=== PATIENT | male | born 1965 | race Caucasian/White ===

== ENCOUNTER 2021-07-29 17:57 | Emergency (ER) | payer BC ==
[~2021-07-29] VITALS: Ht 175.3 cm; Wt 75.0 kg
[2021-07-29 19:10] LABS: BASOPHILS % (AUTO) 0.2 % (0-1); EOSINOPHILS % (AUTO) 0.1 % (0-6); HEMATOCRIT 48.8 % (42.0-52.0); HEMOGLOBIN 16.4 g/dl (14.0-17.9); LYMPHOCYTES # (AUTO) 1.5 X10'3 (1.1-4.8); LYMPHOCYTES % (AUTO) 10.3 % (21-51); MEAN CORPUSCULAR HEMOGLOBIN 32.1 PG (27.0-31.0); MEAN CORPUSCULAR HGB CONC 33.6 g/dL (33.0-36.5); MEAN CORPUSCULAR VOLUME 95.6 FL (78-98); MEAN PLATELET VOLUME 8.3 FL (7.4-10.4); MONOCYTES # (AUTO) 0.9 X10'3 (0-0.9); NEUTROPHILS % (AUTO) 83.4 % (42-75); PLATELET COUNT 230 X10'3 (140-440); RED CELL DISTRIBUTION WIDTH 13.9 % (11.5-14.5); WHITE BLOOD COUNT 14.4 X10'3 (4.5-11.0)
[2021-07-29 19:29] LABS: ALANINE AMINOTRANSFERASE 38 U/L (12-78); ALBUMIN 4.6 G/DL (3.4-5.0); ALBUMIN/GLOBULIN RATIO 1.6 (1.1-1.5); ALKALINE PHOSPHATASE 63 IU/L (46-116); ANION GAP 13 (8-16); ASPARTATE AMINO TRANSFERASE 44 U/L (10-37); BILIRUBIN,TOTAL 0.6 MG/DL (0.1-1.0); BLOOD UREA NITROGEN 9 MG/DL (7-18); BUN/CREATININE RATIO 10.6 (5.4-32.0); CHLORIDE 106 MMOL/L (99-107); CREATININE 0.85 MG/DL (0.60-1.10); ETHANOL 0.179 GM/DL (0.0-0.010); GLUCOSE 96 MG/DL (70-104); POTASSIUM 3.9 MMOL/L (3.5-5.1); SODIUM 142 MMOL/L (135-145); TOTAL CARBON DIOXIDE 22.6 MMOL/L (24-32); TOTAL PROTEIN 7.4 G/DL (6.4-8.2); eGFR > 90 ML/MIN
[2021-07-29 19:48] LABS: URINE AMPHETAMINE SCREEN NEGATIVE (Neg); URINE BARBITUATE SCREEN NEGATIVE (Neg); URINE BENZODIAZEPINES SCREEN NEGATIVE (Neg); URINE CANNABINOID SCREEN NEGATIVE (Neg); URINE COCAINE SCREEN NEGATIVE (Neg); URINE METHADONE SCREEN NEGATIVE (Neg); URINE OPIATE SCREEN NEGATIVE (Neg); URINE PHENCYCLIDINE SCREEN NEGATIVE (Neg)
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
[2021-07-29] MEDS ORDERED: HYDROcodone/acetaminophen 10/325mg tab PO ONE (21:20)
[2021-07-29] MEDS ORDERED: ibuprofen tablet 400 MG TABLET PO ONE (21:25)
--- NOTE | 2021-07-29 22:45 | NUR ---
Pt is laying in bed sleeping, rr 16 even and unlabored.
--- NOTE | 2021-07-29 23:36 | NUR ---
Pt awake complaining of pain, doesnt want additional medication to be requested from the provider at this time. Repositioned patients bed
[2021-07-30] MEDS ORDERED: cyclobenzaprine 10mg tablet PO ONE (01:45)
--- NOTE | 2021-07-30 02:04 | NUR ---
Pt laying in bed. He is having difficulty sleeping due to discomfort. Pt did agree to take Flexeril
--- NOTE | 2021-07-30 04:28 | NUR ---
pt is laying in bed, eyes closed rr 16
--- NOTE | 2021-07-30 05:20 | NUR ---
pt awake laying in bed w/eyes open rr 16 even and unlabored
[2021-07-30] MEDS ORDERED: ibuprofen tablet 400 MG TABLET PO PRN (06:15)
[2021-07-30 06:47] LABS: CLARITY,URINE CLEAR (Clear); GLUCOSE, URINE NEGATIVE (Neg); KETONES,URINE NEGATIVE (Neg); LEUKOCYTE ESTERASE ,URINE NEGATIVE (Neg); NITRITES, URINE NEGATIVE (Neg); OCCULT BLOOD,URINE TRACE-INTACT (Neg); PROTEIN,URINE NEGATIVE (Neg); UROBILINOGEN,URINE 0.2 E.U/dL (0.2-1.0)
[2021-07-30] MEDS ORDERED: NO HOME MEDS (06:48)
--- NOTE | 2021-07-30 07:00 | NUR ---
Pt lying in bed with eyes closed, teletypewriter operator was just at bedside. RR even and unlabored.
[2021-07-30 07:03] LABS: COLOR,URINE STRAW (Yellow); UA COLLECTION TYPE CLN CATCH MIDSTREAM
[2021-07-30 07:05] LABS: SQUAMOUS EPITHELIAL CELL,UR FEW /LPF (FEW)
[2021-07-30 07:06] LABS: BACTERIA,URINE FEW /HPF (Neg); RBC,URINE 0-2 /HPF (0-2); WBC,URINE 0-4 /HPF (0-4)
--- NOTE | 2021-07-30 08:00 | NUR ---
Pt declined breakfast.
--- NOTE | 2021-07-30 08:18 | NUR ---
Pt ambulated to bathroom.
--- NOTE | 2021-07-30 08:40 | NUR ---
Maco with [facility] is at bedside evaluating the patient.
--- NOTE | 2021-07-30 09:15 | NUR ---
Pt pacing around bed. Pt is on phone talking to family. [facility] and pt are putting together a safe discharge plan. Pt remains calm.
--- NOTE | 2021-07-30 11:10 | NUR ---
Patient appears to be sleeping, no restless movements. Respirations even and unlabored.
--- NOTE | 2021-07-30 13:00 | NUR ---
Patient declined lunch.
--- NOTE | 2021-07-30 13:05 | NUR ---
Pt lying awake on his bed. No distress noted.
--- NOTE | 2021-07-30 13:09 | NUR ---
MARCELINO TORO PT'S FRIEND CELL #[phone] HOME [phone]. PT WILL DISCHARGE WITH HIM.
--- NOTE | 2021-07-30 15:05 | NUR ---
DISCHARGE NOTE: Patient ambulated independently from unit at 1455. Pt was A&Ox4. Pt left with all personal belongings. Pt presents somber and remorseful. Pt will be staying with Alexi until his is able to fly back from [place]. Program Review Director reenforced the importance of folllow up with [facility] program. Pt verbalized understanding. Pt left with hard copy resources.
[2021-07-30 15:10] VITALS: BP 127/76
== END 2021-07-30 14:55 | disposition home or self-care (01) ==
LOC: ER 17:58
DX: R45.851 Suicidal ideations (principal); S12.190A Other displaced fracture of second cervical vertebra, initial encounter for closed fracture; R91.1 Solitary pulmonary nodule; Z20.822 Contact with and (suspected) exposure to COVID-19; V49.9XXA Car occupant (driver) (passenger) injured in unspecified traffic accident, initial encounter; Y93.89 Activity, other specified; Y92.89 Other specified places as the place of occurrence of the external cause; Y99.8 Other external cause status
CPT/HCPCS: 36415; 70450; 71045; 71250; 72125; 74176; 80053; 80305; 80320; 81001; 84443; 85025; 87635; 99285; C9803